=== PATIENT | female | born 1960 | race Caucasian/White ===

== ENCOUNTER → 2020-11-24 | Outpatient (CLI) | payer OTHER ==
[~2020-11-24] MED LIST: ACETAMINOPHEN325 MG PO; ALBUTEROL1.25 MG/3 INH; ALL DAY ALLERGY10 M2 PO; ARNUITY ELLIPT50 MCG INH; ASPIR 8181 MG PO; BONIVA150 MG PO; BUDESONIDE0.25 MG/2 INH; FLOVENT 440.088 GM/I INH; HYDROCODON-ACE1 EAC2 PO; HYDROCODON-ACE1 EAC4 PO; LASIX TAB 20 MG20 MG PO; MELOXICAM15 MG PO; MONTELUKAST SOD10 MG PO; ONDANSETRON HCL4 MG PO; PERCOCET 5/325 T1 EA PO; PLAQUENIL 200200 MG PO; PREMARIN 0.60.625 MG PO; PROAIR DIGIHAL90 MCG INH; PROTONIX 40 MG40 M1 PO; ZOFRAN ODT 4 MG4 MG SL
== END ==
LOC: KOH-I 14:13
DX: M54.5 Low back pain (principal); M54.2 Cervicalgia
CPT/HCPCS: 72050; 72100

== ENCOUNTER → 2021-08-03 | Outpatient (CLI) | payer OTHER | LOC: EXRD 14:57 | DX: J20.9 Acute bronchitis, unspecified (principal); R91.8 Other nonspecific abnormal finding of lung field | CPT/HCPCS: 71046 ==

== ENCOUNTER 2021-09-04 15:59 | Emergency (ER) | payer OTHER ==
[2021-09-04 16:44] LABS: RED BLOOD COUNT 4.54 M/UL (4.00-5.10); WHITE BLOOD COUNT 6.1 K/UL (4.5-11.0)
== END 2021-09-04 20:00 | disposition home or self-care (01) ==
LOC: ER1 15:59
PROVIDERS: Physician Assistant
DX: R06.00 Dyspnea, unspecified (principal); J44.9 Chronic obstructive pulmonary disease, unspecified; Z90.710 Acquired absence of both cervix and uterus; Z79.82 Long term (current) use of aspirin; Z20.822 Contact with and (suspected) exposure to COVID-19
CPT/HCPCS: 71045; 71250; 80053; 81001; 82550; 82553; 83605; 83874; 83880; 84484; 85025; 87040; 93005; 99285; U0002

== ENCOUNTER → 2021-09-06 | Outpatient (CLI) | payer OTHER | LOC: HEART 5 09:56 | DX: R60.0 Localized edema (principal) | CPT/HCPCS: 93306 ==

== ENCOUNTER → 2021-10-04 | Outpatient (CLI) | payer OTHER | LOC: HEART 5 08:47 | DX: I20.8 Other forms of angina pectoris (principal); R06.02 Shortness of breath | CPT/HCPCS: 78452; A9502; J2785 ==

== ENCOUNTER → 2021-11-29 | Outpatient (CLI) | payer OTHER | LOC: EXRD 08:38 | DX: M54.50 Low back pain, unspecified (principal); M51.36 Other intervertebral disc degeneration, lumbar region | CPT/HCPCS: 72100 ==

== ENCOUNTER → 2021-12-22 | Outpatient (CLI) | payer OTHER | LOC: EXRD 13:21 | DX: U07.1 COVID-19 (principal); J44.9 Chronic obstructive pulmonary disease, unspecified | CPT/HCPCS: 71046 ==

== ENCOUNTER → 2022-01-16 | Outpatient (CLI) | payer MEDICARE, OTHER | LOC: HEART 5 10:06 | DX: J45.909 Unspecified asthma, uncomplicated (principal) | CPT/HCPCS: 94060; 94729 ==

== ENCOUNTER → 2022-05-15 | Outpatient (CLI) | payer MEDICARE, OTHER | LOC: EXRD 11:43 | DX: J20.9 Acute bronchitis, unspecified (principal); J94.8 Other specified pleural conditions | CPT/HCPCS: 71046 ==